=== PATIENT | female | born 2005 ===

== ENCOUNTER 2024-11-15 16:35 | Emergency (ER) | payer OTHER, SELFPAY | END 2024-11-15 17:49 | disposition home or self-care (01) | LOC: ERS 16:35 | DX: S80.11XA Contusion of right lower leg, initial encounter (principal); V03.90XA Pedestrian on foot injured in collision with car, pick-up truck or van, unspecified whether traffic or nontraffic accident, initial encounter; Y92.89 Other specified places as the place of occurrence of the external cause; Y99.0 Civilian activity done for income or pay | CPT/HCPCS: 99283 ==